=== PATIENT | male | born 2000 | race Caucasian/White ===

== ENCOUNTER 2021-05-30 13:28 | Emergency (ER) | payer MEDICAID ==
[~2021-05-30] VITALS: Ht 195.6 cm; Wt 74.0 kg
--- NOTE | 2021-05-30 13:50 | NUR ---
assumed care of pt. pt here c/o L testicular pain x2 weeks, increasing eserday. pt reports that he thinks that he has a testicular torsion. pt reports that he had a surgical repair of a torsion as a child pt reports that his L testicle is swollen and discolored since yesterday pt denies new recent sexual partner, denies hematuria, denies any urinary c/o or D/C US at bedside
--- NOTE | 2021-05-30 15:05 | NUR ---
chart up for recheck
--- NOTE | 2021-05-30 15:22 | NUR ---
awaiting recheck report to Sherly YEBOAH for lunch
--- NOTE | 2021-05-30 16:02 | NUR ---
Dr Marshall at bedside for recheck
[2021-05-30 16:40] VITALS: BP 125/76
== END 2021-05-30 16:47 | disposition home or self-care (01) ==
LOC: ED 16:41
DX: I86.1 Scrotal varices (principal)
CPT/HCPCS: 76870; 99284

== ENCOUNTER 2021-07-24 19:14 | Emergency (ER) | payer MEDICAID ==
[~2021-07-24] VITALS: Ht 195.6 cm; Wt 76.7 kg
[2021-07-24 19:17] VITALS: BP 121/68
--- NOTE | 2021-07-24 19:29 | NUR ---
DIRECTOR AUTOMOTIVE: PROVIDED PT W/ URINE SPECIMEN CUP. INSTRUCTED TO PROVIDE SAMPLE.
[2021-07-24 19:44] LABS: BASOPHILS % (AUTO) 1 % (0-1); EOSINOPHILS % (AUTO) 1 % (1-7); LYMPHOCYTES % (AUTO) 26 % (22-44); MEAN CORPUSCULAR HEMOGLOBIN 29.8 pg (27.5-34.5); MEAN CORPUSCULAR HGB CONC 33.6 g/dL (33.2-36.2); MEAN PLATELET VOLUME 8.7 fL (7.4-10.4); MONOCYTES % (AUTO) 13 % (2-9); NEUTROPHILS % (AUTO) 60 % (42-75); PLATELET COUNT 233 x10^3/uL (130-400); RED BLOOD COUNT 4.93 x10^6/uL (4.38-5.82)
[2021-07-24 19:49] LABS: ALBUMIN 4.1 g/dL (3.4-5.0); ANION GAP 4 mmol/L (5-15); CHLORIDE 103 mmol/L (98-107)
--- NOTE | 2021-07-24 21:18 | NUR ---
PATIENT PROVIDED WITH WATER REQUESTED. AWARE OF NEED TO PROVIDE URINE SAMPLE.
[2021-07-24 21:44] LABS: MICROSCOPIC INDICATED
--- NOTE | 2021-07-24 22:19 | NUR ---
Patient given discharge instructions and they have confirmed that they understand the instructions. Patient ambulatory with steady gait. NAD, all questions answered appropriately, denies additional needs at this time. No personal belongings left in room after discharge.
== END 2021-07-24 22:23 | disposition home or self-care (01) ==
LOC: ED 22:12
DX: N50.812 Left testicular pain (principal); F17.200 Nicotine dependence, unspecified, uncomplicated
CPT/HCPCS: 36415; 76870; 80048; 81001; 82040; 85025; 87491; 87591; 99284